=== PATIENT | male | born 1990 | race Caucasian/White ===

== ENCOUNTER 2016-12-04 16:42 | Emergency (ER) | payer MEDICAID ==
[2016-12-04 17:00] VITALS: BP 113/61
[2016-12-04] MEDS ORDERED: Ketorolac 60 MG/2 ML SDV IM ONE (17:10)
--- NOTE | 2016-12-04 17:19 | EDM.PDOC ---
ED HPI GENERAL MEDICAL PROBLEM - General Chief Complaint: Lower Extremity Injury/Pain Stated Complaint: FALL FROM TRACTOR Time Seen by Provider: 12/04/16 17:10 Source of Information: Reports: Patient History Limitations: Reports: No Limitations - History of Present Illness INITIAL COMMENTS - FREE TEXT/NARRATIVE: PT STATES HE ACCIDENTALLY FELL OFF A TRACTOR 3 HOURS AGO. DROVE SELF TO ER. HEIGHT OF FALL APPROX 3 FEET. LANDED ON RIGHT HIP/THIGH ON GRASSY SURFACE. DENIES LOC, HEAD INJURY, NECK PAIN, BACK PAIN, ABD PAIN, N/V, OR ANY OTHER INJURY Onset: Today Onset Date: 12/04/16 Onset Time: 14:00 Duration: Hour(s): Location: Reports: Lower Extremity, Right Quality: Reports: Ache Severity: Mild Improves with: Reports: Rest Worsens with: Reports: Movement Context: Reports: Trauma Associated Symptoms: Reports: No Other Symptoms Right Hip Pain Score (Numeric/FACES): 8 - Related Data Allergies Allergy/AdvReac Type Severity Reaction Status Date / Time No Known Drug Allergies Allergy Cannot Verified 12/04/16 17:00 Remember Home Meds: Home Meds . [No Known Home Meds] 12/04/16 [History] Review of Systems - Review of Systems Review Of Systems: ROS reveals no pertinent complaints other than HPI. Constitutional: Reports: No Symptoms Eyes: Reports: No Symptoms Ears: Reports: No Symptoms Nose: Reports: No Symptoms Mouth/Throat: Reports: No Symptoms Respiratory: Reports: No Symptoms Cardiovascular: Reports: No Symptoms GI/Abdominal: Reports: No Symptoms Musculoskeletal: Reports: Leg Pain (RIGHT THIGH). Denies: Neck Pain, Shoulder Pain, Back Pain Skin: Reports: No Symptoms Neurological: Reports: No Symptoms Psychiatric: Reports: No Symptoms ED EXAM, GENERAL - Physical Exam Exam: See Below Exam Limited By: No Limitations General Appearance: Alert, WD/WN, No Apparent Distress Throat/Mouth: Normal Inspection, Normal Oropharynx, No Airway Compromise Head: Atraumatic, Normocephalic Neck: Normal Inspection, Supple, Non-Tender, Full Range of Motion Respiratory/Chest: No Respiratory Distress, Lungs Clear Cardiovascular: Regular Rate, Rhythm GI/Abdominal: Normal Bowel Sounds, Soft, Non-Tender Back Exam: Normal Inspection, Full Range of Motion. No: CVA Tenderness (L), CVA Tenderness (R) Extremities: Leg Pain (LATERAL RIGHT SUPERIOR THIGH PAIN TO PALP AND ROM / NO EDEMA, ECCHYMOSIS, OR DEFORMITY NOTED / PELVIS STAPLE AND NO POINT TENDERNESS) Neurological: Alert, Oriented, CN II-XII Intact, Normal Cognition, No Motor/ Sensory Deficits Psychiatric: Normal Affect, Normal Mood Skin Exam: Warm, Dry, Intact, Normal Color, No Rash Course - Vital Signs Last Recorded V/S: Last Vital Signs Temp 99.1 F 12/04/16 16:51 Pulse 86 12/04/16 16:51 Resp 16 12/04/16 16:51 BP 113/61 12/04/16 16:51 Pulse Ox 98 12/04/16 16:51 - Orders/Labs/Meds Orders: Active Orders 24 hr Category Date Time Status Hip Min 2V or 3V Rt [CR] Stat Exams 12/04/16 17:07 Ordered Meds: Medications Discontinued Medications Generic Name Dose Route Start Last Admin Trade Name Freq PRN Reason Stop Dose Admin Ketorolac Tromethamine 60 mg 12/04/16 17:10 Toradol IM 12/04/16 17:11 ONETIME ONE - Radiology Interpretation Free Text/Narrative:: XRAY SHOWS NO ACUTE PROCESS - Re-Assessments/Exams Free Text/Narrative Re-Assessment/Exam: 12/04/16 17:35 PT AFEBRILE, NONTOXIC APPEARING, VSS, PAIN SUBSIDING. Departure - Departure Time of Disposition: 17:35 Disposition: Home, Self-Care 01 Condition: Good Clinical Impression: Contusion of thigh Muscle strain of right thigh Qualifiers: Encounter type: initial encounter Qualified Code(s): S76.911A - Strain of unspecified muscles, fascia and tendons at thigh level, right thigh, initial encounter - Discharge Information Instructions: Quadriceps Contusion, [id number], Muscle Strain, [id number] Referrals: PCP,None [Primary Care Provider] - Additional Instructions: FOLLOW UP WITH PCP IN NEXT 1-2 DAYS - My Orders Last 24 Hours: My Active Orders 12/04/16 17:07 Hip Min 2V or 3V Rt [CR] Stat - Assessment/Plan Last 24 Hours: My Active Orders 12/04/16 17:07 Hip Min 2V or 3V Rt [CR] Stat Assessment:: LEG CONTUSION / MUSCLE STRAIN Plan: F/U WITH PCP
== END 2016-12-04 17:50 | disposition home or self-care (01) ==
LOC: KA.ED 16:42
DX: S76.911A Strain of unspecified muscles, fascia and tendons at thigh level, right thigh, initial encounter (principal); W17.89XA Other fall from one level to another, initial encounter
CPT/HCPCS: 73502; 96372; 99283; J1885

== ENCOUNTER 2016-12-13 19:55 | Emergency (ER) | payer MEDICAID ==
[2016-12-13 20:12] VITALS: BP 122/64
[2016-12-13] MEDS ORDERED: Bacitracin/Neomycin/Polymyxin B Oint 0.9 GM U/D Packet ONE (20:22)
--- NOTE | 2016-12-13 20:27 | EDM.PDOC ---
ED HPI GENERAL MEDICAL PROBLEM - General Chief Complaint: Laceration Stated Complaint: laceration Time Seen by Provider: 12/13/16 20:10 Source of Information: Reports: Patient History Limitations: Reports: No Limitations - History of Present Illness INITIAL COMMENTS - FREE TEXT/NARRATIVE: 26-year-old male presents emergency room with small laceration over the left index finger. Patient reports that he was working on his car dashboard when he cut his finger on a piece of plastic. He has very small laceration over the index finger radial side just distal to the DIP joint. This wound was seen and evaluated very superficial and does not need to be repaired with sutures removed. His tetanus was updated this past June and therefore is current. RN clean the wound soaking it in saline and peroxide. He denies any numbness or tingling he has full finger range of motion no other complaints or concerns are voiced. 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 [No Known Home Meds] 12/04/16 [History] Social & Family History - Tobacco Use Smoking Status *Q: Current Every Day Smoker Years of Tobacco use: 13 Packs/Tins Daily: 0.5 Second Hand Smoke Exposure: No - Caffeine Use Caffeine Use: Reports: Soda - Alcohol Use Days Per Week of Alcohol Use: 1 Number of Drinks Per Day: 1 Total Drinks Per Week: 1 - Recreational Drug Use Recreational Drug Use: No ED ROS GENERAL - Review of Systems Review Of Systems: ROS reveals no pertinent complaints other than HPI. ED EXAM, SKIN/RASH Exam: See Below Exam Limited By: No Limitations General Appearance: Alert, No Apparent Distress, Thin Extremities: Other (superficial laceration of left index finger radial side just distal to the DIP joint. Wound is clean. This does not go into the subcutaneous tissue or muscle. He hasn't [place] and light touch distally.) Neurological: Alert, Oriented Skin: Wound/Incision (left index finger) Location, Skin: Upper Extremity, Left Course - Vital Signs Last Recorded V/S: Last Vital Signs Temp 99.1 F 12/13/16 20:11 Pulse 72 12/13/16 20:11 Resp 18 12/13/16 20:11 BP 122/64 12/13/16 20:11 Pulse Ox 96 12/13/16 20:11 Departure - Departure Time of Disposition: 20:35 Disposition: Home, Self-Care 01 Condition: Good Clinical Impression: Broken skin - Discharge Information Care Plan Goals: 1. Change dressing in 48 hours and cover with a Band-Aid. 2. Keep the wound clean and dry. - Assessment/Plan Assessment:: 1. Superficial wound left index finger Plan: 1. Wound was cleaned with saline and peroxide. Clean sterile dressing was applied with triple antibiotic over the laceration. 2. Patient was instructed on wound care will change the dressing in 48 hours and cover with Band-Aid.
== END 2016-12-13 20:35 | disposition home or self-care (01) ==
LOC: KA.ED 19:55
DX: S61.211A Laceration without foreign body of left index finger without damage to nail, initial encounter (principal); F17.210 Nicotine dependence, cigarettes, uncomplicated; W20.8XXA Other cause of strike by thrown, projected or falling object, initial encounter
CPT/HCPCS: 99283

== ENCOUNTER 2017-01-17 05:04 | Emergency (ER) | payer MEDICAID, OTHER ==
[2017-01-17] MEDS ORDERED: Ketorolac 30 MG/ML SDV IVPUSH ONE (05:34)
[2017-01-17] MEDS ORDERED: Ketorolac 30 MG/ML SDV ONE (05:36)
[2017-01-17] MEDS: Sodium Chloride 0.9% 5 ML Syringe FLUSH SCH ×2 (05:45→05:52)
--- NOTE | 2017-01-17 05:48 | EDM.PDOC ---
ED HPI GENERAL MEDICAL PROBLEM - General Chief Complaint: General Stated Complaint: fall Time Seen by Provider: 01/17/17 05:20 Source of Information: Reports: Patient, EMS History Limitations: Reports: No Limitations - History of Present Illness INITIAL COMMENTS - FREE TEXT/NARRATIVE: 26 YO WM presents to ER after fall down stairs. Pt reports he had a "panic attack" after a bad dream and was heading down the stairs when he lost his balance and tumbled sideways down approximately 4 stairs. Pt was able to get up and ambulate after his fall. Pt complaining of low back pain without pain or numbness in his legs or feet. Pt denies any loss of consciousness or head injury. Pt denies any chest pain or shortness of breath. Pt states he does feel a little anxious right now, but he states his anxiety/panic attack has resolved. Onset Date: 01/17/17 Onset Time: 05:00 Duration: Improving Location: Reports: Back Quality: Reports: Ache Severity: Mild Improves with: Reports: Rest Worsens with: Reports: Movement Associated Symptoms: Reports: No Other Symptoms - Related Data Allergies Allergy/AdvReac Type Severity Reaction Status Date / Time No Known Drug Allergies Allergy Cannot Verified 01/17/17 05:10 Remember Home Meds: Home Meds Cyclobenzaprine [Flexeril] 10 mg PO TID PRN #15 tablet 01/17/17 [Rx] Hydrocodone/Acetaminophen [Hydrocodon-Acetaminophn 10-325] 1 tab PO Q4H PRN #10 tablet 01/17/17 [Rx] Prednisone [IJD: predniSONE] 20 mg PO WITHBREAKFAST #15 tab 01/17/17 [Rx] Past Medical History Psychiatric History: Reports: Depression - Past Surgical History Musculoskeletal Surgical History: Reports: Other (See Below) Other Musculoskeletal Surgeries/Procedures:: plate to the left forearm. Social & Family History - Tobacco Use Smoking Status *Q: Current Every Day Smoker Years of Tobacco use: 13 Packs/Tins Daily: 0.5 Second Hand Smoke Exposure: No - Caffeine Use Caffeine Use: Reports: Soda Caffeine Use Comment: did not ask - Alcohol Use Days Per Week of Alcohol Use: 1 Number of Drinks Per Day: 1 Total Drinks Per Week: 1 - Recreational Drug Use Recreational Drug Use: No ED ROS GENERAL - Review of Systems Review Of Systems: See Below Constitutional: Reports: No Symptoms HEENT: Reports: No Symptoms Respiratory: Reports: No Symptoms Cardiovascular: Reports: No Symptoms Endocrine: Reports: No Symptoms GI/Abdominal: Reports: No Symptoms : Reports: No Symptoms Musculoskeletal: Reports: Back Pain Skin: Reports: No Symptoms Neurological: Reports: No Symptoms Psychiatric: Reports: No Symptoms Hematologic/Lymphatic: Reports: No Symptoms Immunologic: Reports: No Symptoms ED EXAM, GENERAL - Physical Exam Exam: See Below Exam Limited By: No Limitations General Appearance: Alert, WD/WN, No Apparent Distress, Anxious Eye Exam: Bilateral Eye: EOMI, PERRL Ears: Normal External Exam, Normal Canal, Hearing Grossly Normal, Normal TMs Nose: Normal Inspection, Normal Mucosa, No Blood Throat/Mouth: Normal Inspection, Normal Lips, Normal Teeth, Normal Gums, Normal Oropharynx, Normal Voice, No Airway Compromise Head: Atraumatic, Normocephalic Neck: Normal Inspection, Supple, Non-Tender, Full Range of Motion Respiratory/Chest: No Respiratory Distress, Lungs Clear, Normal Breath Sounds, No Accessory Muscle Use, Chest Non-Tender Cardiovascular: Normal Peripheral Pulses, Regular Rate, Rhythm, No Edema, No Gallop, No JVD, No Murmur, No Rub GI/Abdominal: Normal Bowel Sounds, Soft, Non-Tender, No Organomegaly, No Distention, No Abnormal Bruit, No Mass Back Exam: Muscle Spasm, Paraspinal Tenderness Extremities: Normal Inspection, Normal Range of Motion, Non-Tender, Normal Capillary Refill, No Pedal Edema Neurological: Alert, Oriented, CN II-XII Intact, Normal Cognition, Normal Gait, Normal Reflexes, No Motor/Sensory Deficits Psychiatric: Normal Affect, Normal Mood Skin Exam: Warm, Dry, Intact, Normal Color, No Rash Lymphatic: No Adenopathy Course - Vital Signs Last Recorded V/S: Last Vital Signs Temp 36.8 C 01/17/17 05:10 Pulse 62 01/17/17 05:10 Resp 18 01/17/17 05:10 BP 123/64 01/17/17 05:10 Pulse Ox 98 01/17/17 05:10 - Orders/Labs/Meds Orders: Active Orders 24 hr Category Date Time Status Lumbar Spine 2 or 3V [CR] Stat Exams 01/17/17 05:34 Ordered HYDROmorphone [Dilaudid] Med 01/17/17 06:11 Once 1 mg IVPUSH ONETIME ONE Sodium Chloride 0.9% [Syrex Flush] Med 01/17/17 06:00 Active 5 ml FLUSH Q8HR methylPREDNISolone Sod Succ [Solu-MEDROL] Med 01/17/17 06:11 Once 125 mg IVPUSH ONETIME ONE Medication Orders Sodium Chloride (Syrex Flush) 5 ml FLUSH Q8HR ALEXIS Last Admin: 01/17/17 05:52 Dose: 5 ml Labs: lumbar- NAD; no fx Meds: Medications Generic Name Dose Route Start Last Admin Trade Name Freq PRN Reason Stop Dose Admin Sodium Chloride 5 ml 01/17/17 06:00 01/17/17 05:52 Syrex Flush FLUSH 5 ml Q8HR ALEXIS Administration Discontinued Medications Generic Name Dose Route Start Last Admin Trade Name Freq PRN Reason Stop Dose Admin Diazepam 5 mg 01/17/17 05:34 01/17/17 05:43 Valium IVPUSH 01/17/17 05:35 5 mg ONETIME ONE Administration Diazepam Confirm 01/17/17 05:35 01/17/17 05:45 Valium Administered 01/17/17 05:36 Not Given Dose 10 mg .ROUTE .STK-MED ONE Ketorolac Tromethamine 30 mg 01/17/17 05:34 01/17/17 05:38 Toradol IVPUSH 01/17/17 05:35 30 mg ONETIME ONE Administration Ketorolac Tromethamine Confirm 01/17/17 05:36 01/17/17 05:44 Toradol Administered 01/17/17 05:37 Not Given Dose 30 mg .ROUTE .STK-MED ONE Departure - Departure Time of Disposition: 06:12 Disposition: Home, Self-Care 01 Condition: Good Clinical Impression: Panic anxiety syndrome Low back pain Qualifiers: Chronicity: acute Back pain laterality: bilateral Sciatica presence: without sciatica Qualified Code(s): M54.5 - Low back pain - Discharge Information Prescriptions: Cyclobenzaprine [Flexeril] 10 mg PO TID PRN #15 tablet PRN Reason: muscle spasms Hydrocodone/Acetaminophen [Hydrocodon-Acetaminophn 10-325] 1 tab PO Q4H PRN #10 tablet PRN Reason: Pain Prednisone [IJD: predniSONE] 20 mg PO WITHBREAKFAST #15 tab Instructions: Back Pain, Adult, Panic Attacks Referrals: PCP,Not In Area [Primary Care Provider] - Forms: ED Department Discharge - My Orders Last 24 Hours: My Active Orders 01/17/17 05:34 Lumbar Spine 2 or 3V [CR] Stat 01/17/17 06:00 Sodium Chloride 0.9% [Syrex Flush] 5 ml FLUSH Q8HR 01/17/17 06:11 HYDROmorphone [Dilaudid] 1 mg IVPUSH ONETIME ONE methylPREDNISolone Sod Succ [Solu-MEDROL] 125 mg IVPUSH ONETIME ONE - Assessment/Plan Last 24 Hours: My Active Orders 01/17/17 05:34 Lumbar Spine 2 or 3V [CR] Stat 01/17/17 06:00 Sodium Chloride 0.9% [Syrex Flush] 5 ml FLUSH Q8HR 01/17/17 06:11 HYDROmorphone [Dilaudid] 1 mg IVPUSH ONETIME ONE methylPREDNISolone Sod Succ [Solu-MEDROL] 125 mg IVPUSH ONETIME ONE Assessment:: 1. Anxiety/panic attack 2. low back pain from fall Plan: 1. hydrocodone 10/325 #10 Q4-6 PRN pain 2. prednisone 60mg PO QD x 5 days 3. Flexeril 10mg PO TID PRN muscle spasms 4. discharge home 5. follow up with PCP for further evaluation and treatment next 3-5 days 6. return to ER for worsening symptoms
[2017-01-17] MEDS ORDERED: methylPREDNISolone Sodium Succinate 125 MG/2 ML SDV IVPUSH ONE (06:11)
[2017-01-17] MEDS ORDERED: HYDROmorphone 1 MG/ML Syringe IVPUSH ONE (06:11)
[2017-01-17 06:26] VITALS: BP 98/47
== END 2017-01-17 07:05 | disposition home or self-care (01) ==
LOC: KA.ED 05:04 → SUPCPDRO 05:04 → KA.ED 07:05
DX: M54.5 Low back pain (principal); F41.0 Panic disorder [episodic paroxysmal anxiety]; F32.9 Major depressive disorder, single episode, unspecified; F17.210 Nicotine dependence, cigarettes, uncomplicated
CPT/HCPCS: 72100; 96374; 96375; 99283; J1885; J2930; J3360